=== PATIENT | female | born 1970 | race Caucasian/White ===

== ENCOUNTER 2016-09-02 14:42 | Inpatient (IN) | payer MEDICARE, OTHER ==
[2016-09-02 14:54] VITALS: BMI 33.5
--- NOTE | 2016-09-02 15:30 | PDOC ---
History of Present Illness - General Chief Complaint: Revisit, Lab Variance Stated Complaint: PCP SENT, BLOOD TRANS Time Seen by Provider: 09/02/16 15:05 History Source: Patient Exam Limitations: No Limitations - History of Present Illness Initial Comments: CHIEF COMPLAINT: 45 y/o afebrile female with PMH proctitis sent in by Dr. Shook for blood transfusion and admission. HISTORY OF PRESENT ILLNESS: The patient states she had the flu and has had bloody diarrhea for the past 11 days. Yesterday she went to see Dr. Shook, who took blood and called her today and told her to come to the ER for a blood transfusion. The patient states she feels very well and is still having episodes of bloody diarrhea. She denies f/c, n/v, CP, SOB, back pain. Vital signs on arrival are notable for pulse of 114. REVIEW OF SYSTEMS: GENERAL/CONSTITUTIONAL: No fever/chills. +weakness. No weight change. HEAD, EYES, EARS, NOSE AND THROAT: No change in vision. No ear pain or discharge. No sore throat. CARDIOVASCULAR: No chest pain or shortness of breath. RESPIRATORY: No cough, wheezing, or hemoptysis. GASTROINTESTINAL: +lower abdominal pain and bloody diarrhea. No nausea, vomiting. GENITOURINARY: No dysuria, frequency, or change in urination. MUSCULOSKELETAL: No joint or muscle swelling or pain. No neck or back pain. SKIN: No rash or easy bruising. NEUROLOGIC: No headache, vertigo, loss of consciousness, or loss of sensation. PHYSICAL EXAM: GENERAL: The patient is awake, alert, and fully oriented, in no acute distress. She appears pale. HEAD: Normal with no signs of trauma. ENT: Pupils equal, round and reactive to light, extraocular movements intact, sclera anicteric, conjunctiva pale. Neck supple. LUNGS: Clear to auscultation bilaterally. Normal excursion. No respiratory distress or use of accessory muscles. CV: RRR, S1/S2, no MRG. Cap refill < 2 sec. ABDOMEN: Soft, non-distended, non-tender even to deep palpation, no hepatomegaly or splenomegaly, no masses. RECTAL: No visible external hemorrhoids or blood. No internal hemorrhoids or blood on internal rectal exam. EXTREMITIES: Normal range of motion, no edema. NEUROLOGICAL: Normal speech, normal gait. CN II-XII grossly intact. PSYCH: Normal mood, normal affect. SKIN: Warm, dry, normal turgor, no rashes or lesions noted. Past History - Past Medical History Allergies/Adverse Reactions: Allergies Allergy/AdvReac Type Severity Reaction Status Date / Time Sulfa (Sulfonamide Allergy Mild Verified 04/17/16 18:45 Antibiotics) Penicillins Allergy Unknown Verified 04/17/16 18:45 mint Allergy Uncoded 04/17/16 18:45 Home Medications: Ambulatory Orders Acetaminophen W/ Codeine #3 [Tylenol # 3 -] 1 tab PO Q6H PRN 09/02/16 Clarithromycin [Biaxin] 500 mg PO BID 09/02/16 Naproxen [Naprosyn -] 500 mg PO BID PRN 09/02/16 GI Disorders: Yes (IBS, PROCTITIS) - Psycho/Social/Smoking Cessation Hx Suicidal Ideation: No Smoking Status: No Smoking History: Never smoked Number of Cigarettes Smoked Daily: 1 Information on smoking cessation initiated: No Hx Alcohol Use: No Drug/Substance Use Hx: No Substance Use Type: None *Physical Exam - Vital Signs Last Vital Signs Temp Pulse Resp BP Pulse Ox 98.2 F 114 H 18 140/80 97 09/02/16 14:50 09/02/16 14:50 09/02/16 14:50 09/02/16 14:50 09/02/16 14:50 Heart Score/ECG Review - ECG Intrepretation Comment:: Twelve-lead EKG was performed and reviewed by Dr. Mccormick. There is sinus tachycardia. The axis is normal. The intervals are normal. There are no ST or T wave abnormalities. Impression: Borderline twelve-lead EKG ED Treatment Course - LABORATORY CBC & Chemistry Diagram: 09/02/16 15:31 09/02/16 15:31 Medical Decision Making - Medical Decision Making A/P: 45 y/o afebrile female here for a blood transfusion. Spoke with Dr. Shook and he would like her admitted as her hemoglobin was 5.3 yesterday. Plan is as follows: 1. EKG 2. CXR 3. Labs 4. Blood transfusion 5. Stool occult Will admit to [facility] and put in consult for Dr. Pisano. Pt is aware of the plan and is amenable. H/H = 4.9/17 Platelets 831,000 Ordered PRBCs. Pt admitted to Tele. First unit of PRBCs ordered. *DC/Admit/Observation/Transfer Diagnosis at time of Disposition: Bloody diarrhea Anemia Qualifiers: Anemia type: unspecified type Qualified Code(s): D64.9 - Anemia, unspecified - Discharge Dispostion Condition at time of disposition: Fair Admit: Yes
[2016-09-02 15:36] LABS: BASOPHIL 0.8 % (0-2.0); EOSINOPHIL 5.2 % (0-4.5); MCHC 27.5 g/dl (32.0-36.0); MEAN CELL VOLUME 53.2 fl (80-96); MEAN PLT VOLUME 8.7 fl (7.5-11.1); NEUTROPHILS 66.4 % (42.8-82.8); PLATELET COUNT 831 K/MM3 (134-434); RDW 20.9 % (11.6-15.6); WHITE BLOOD COUNT 11.3 K/mm3 (4.0-10.0)
[2016-09-02 15:46] LABS: MCH 14.6 pg (25.7-33.7)
[2016-09-02 16:09] LABS: INR 1.05 (0.82-1.09); PROTHROMBIN TIME (PATIENT) 11.6 SEC (9.98-11.88)
[2016-09-02 16:11] LABS: ACTIVATED PTT 29.9 SECONDS (26.9-34.4)
[2016-09-02 16:29] LABS: ALBUMIN 2.8 g/dl (3.4-5.0); ALK PHOS 95 U/L (45-117); ANION GAP 11 (8-16); BILIRUBIN,TOTAL 0.3 mg/dL (0.2-1.0); CO2 24 mmol/L (21-32); CREATININE 0.7 mg/dL (0.55-1.02); GLUCOSE,RANDOM 92 mg/dL (74-106); SGOT/AST 11 U/L (15-37); SGPT/ALT 12 U/L (12-78); TOT PROT 6.1 g/dl (6.4-8.2)
[2016-09-02 16:42] LABS: TROPONIN I < 0.02 ng/ml (0.00-0.05)
[2016-09-02 16:42] LABS: ANISOCYTOSIS 2+; HYPOCHROMIA 3+; MICROCYTOSIS 3+; PLATELET ESTIMATE MOD INCREASED (NORMAL); POIKILOCYTOSIS 2+; POLYCHROMASIA 1+
[2016-09-02 16:43] LABS: OVALOCYTES 1+; TARGET CELLS 1+; TEAR DROP CELLS 1+
[2016-09-02] MEDS: CLARITHROMYCIN 500 MG TABLET (UD) PO SCH (22:05)
[2016-09-02] MEDS: PANTOPRAZOLE 40 MG TABLET (FP) PO SCH (22:05)
[2016-09-03 08:14] LABS: MCHC 30.4 g/dl (32.0-36.0); MEAN CELL VOLUME 61.4 fl (80-96); MEAN PLT VOLUME 8.5 fl (7.5-11.1); PLATELET COUNT 641 K/MM3 (134-434); RDW 32.2 % (11.6-15.6); WHITE BLOOD COUNT 8.3 K/mm3 (4.0-10.0)
[2016-09-03 08:24] LABS: MCH 18.7 pg (25.7-33.7)
[2016-09-03 08:38] LABS: CALCIUM 7.9 mg/dL (8.5-10.1); CREATININE 0.7 mg/dL (0.55-1.02)
[2016-09-03 08:49] LABS: THYROID STIMULATING HORMONE 2.2 uIU/ml (0.358-3.74)
[2016-09-03] MEDS: CLARITHROMYCIN 500 MG TABLET (UD) PO SCH ×2 (09:12→21:21)
[2016-09-03] MEDS: PANTOPRAZOLE 40 MG TABLET (FP) PO SCH (09:12)
--- NOTE | 2016-09-03 11:32 | EKG ---
Test Reason : Blood Pressure : / mmHG Vent. Rate : 103 BPM Atrial Rate : 103 BPM P-R Int : 116 ms QRS Dur : 080 ms QT Int : 332 ms P-R-T Axes : 023 027 023 degrees QTc Int : 434 ms SINUS TACHYCARDIA LOW VOLTAGE QRS BORDERLINE ECG NO PREVIOUS ECGS AVAILABLE Confirmed by JOAN MILLAN MD ([id number]) on 09/03/2016 11:32:32 AM Referred By: Confirmed By:JOAN MILLAN MD
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
[2016-09-03] MEDS ORDERED: DEXTROSE 5%-NORMAL SALINE 1,000 ML IV SCH (13:00)
[2016-09-03] MEDS: PANTOPRAZOLE SODIUM 100 ML IVPB SCH ×2 (13:50→21:26)
--- NOTE | 2016-09-03 13:55 | HP ---
DATE OF ADMISSION: 09/02/2016 This is a 45-year-old female known to me, came to my office on last Sunday, which is September 01, with complaints of feeling weak. A CBC done at that time showed hemoglobin 4.9. So, yesterday, she got admitted and received 2 units of blood. Her hemoglobin is 7 this morning. Patient has a history of rectal bleeding now for the last 1 month. For the last 2 weeks, she is having rectal bleeding, started with gastroenteritis. In the past, she had colonoscopy and was diagnosed that she has some colitis on her left side of the colon; etiology not clear. PHYSICAL EXAMINATION: Vital Signs: This morning, her blood pressure 120/65, pulse rate 101, temperature 98. HEENT: Unremarkable. Neck: Supple. No JVD. Lungs: Clear. Heart: S1, S2 normal. No S3, S4. Abdomen: Soft, nontender. Rectal: Fresh blood present. Legs: No edema. LABORATORY REPORTS: WBC 8, hemoglobin 7, hematocrit 23. Chemistry: Electrolytes are normal, blood sugar 89. Thyroid functions are normal. CHEST X-RAY: Normal. ELECTROCARDIOGRAM: Normal sinus rhythm. FINAL DIAGNOSIS: Anemia secondary to gastrointestinal bleeding, colitis. PLAN: Transfuse 2 more units of pack cells today and GI consult, Dr. Pisano/Dr. Hidalgo. Winifred [id number]
[2016-09-03] MEDS ORDERED: ACETAMINOPHEN 1000 MG/100 ML VIAL (NON FORMULARY) IVPB ONE (16:00)
[2016-09-03] MEDS ORDERED: MAGNESIUM CITRATE 300 ML BOTTLE PO ONE (22:30)
[2016-09-03] MEDS ORDERED: BISACODYL 5 MG TABLET.DR (FP) PO ONE (22:30)
[2016-09-03] MEDS: HYDROmorphone HCL CARPU-JECT 2 MG/1 ML DISP.SYRIN IVPB SCH (22:39)
[2016-09-04] MEDS: HYDROmorphone HCL CARPU-JECT 2 MG/1 ML DISP.SYRIN IVPB SCH (04:30)
[2016-09-04] MEDS ORDERED: ePHEDrine SULFATE 50 MG/1 ML AMPULE ONE (07:33)
--- NOTE | 2016-09-04 08:52 | PN ---
Progress Note (short form) - Note Progress Note: ADDENDUM: Patient s/p colonoscopy with finding of pancolitis with worse disease in the left colon. Stool for C diff Start Asacol Once c diff results back, can start steroids as necessary Resume diet
[2016-09-04] MEDS: PANTOPRAZOLE SODIUM 100 ML IVPB SCH ×2 (09:53→21:22)
[2016-09-04 10:12] LABS: BASOPHIL 0.7 % (0-2.0); EOSINOPHIL 5.5 % (0-4.5); MCH 21.3 pg (25.7-33.7); MCHC 32.2 g/dl (32.0-36.0); MEAN CELL VOLUME 66.4 fl (80-96); MEAN PLT VOLUME 8.3 fl (7.5-11.1); NEUTROPHILS 65.5 % (42.8-82.8); PLATELET COUNT 621 K/MM3 (134-434); RDW 33.9 % (11.6-15.6); WHITE BLOOD COUNT 10.7 K/mm3 (4.0-10.0)
[2016-09-04] MEDS: MESALAMINE 800 MG TABLET.DR PO SCH ×2 (13:43→21:24)
[2016-09-04] MEDS: metroNIDAZOLE 250 MG TABLET PO SCH ×2 (13:44→21:22)
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
[2016-09-04] MEDS ORDERED: DICYCLOMINE HCL 20 MG TABLET PO SCH (17:30)
[2016-09-04] MEDS: DICYCLOMINE HCL 10 MG CAPSULE PO SCH ×2 (18:14→22:00)
--- NOTE | 2016-09-04 18:54 | PN ---
Progress Note, Physician Chief Complaint: S/P colonoscopy ,nted colitis ,on flagyl Path report pending History of Present Illness: rectal bleeding less - Current Medication List Current Medications: Active Medications Dicyclomine HCl (Bentyl -) 20 mg PO TID [facility] Last Admin: 09/04/16 18:14 Dose: 20 mg Pantoprazole Sodium (Protonix 40mg Ivpb (Pre-Docked)) 100 mls @ 200 mls/hr IVPB BID [facility] Last Admin: 09/04/16 09:53 Dose: 200 mls/hr Mesalamine (Asacol Hd -) 800 mg PO TID [facility] Last Admin: 09/04/16 13:43 Dose: 800 mg Metronidazole (Flagyl -) 500 mg PO TID [facility] Last Admin: 09/04/16 13:44 Dose: 500 mg - Objective Vital Signs: Vital Signs Temperature 97.8 F 09/04/16 17:58 Pulse Rate 88 09/04/16 17:58 Respiratory Rate 18 09/04/16 17:58 Blood Pressure 130/74 09/04/16 17:58 O2 Sat by Pulse Oximetry (%) 79 L 09/04/16 09:03 Constitutional: Yes: Mild Distress Eyes: Yes: WNL HENT: Yes: WNL Neck: Yes: WNL Cardiovascular: Yes: WNL Respiratory: Yes: WNL Gastrointestinal: Yes: Soft ...Rectal Exam: Yes: Inflammation Breast(s): Yes: WNL Musculoskeletal: Yes: WNL Extremities: Yes: WNL Edema: No ...Motor Strength: WNL Psychiatric: Yes: Alert Labs: CBC, BMP 09/04/16 09:50 09/03/16 06:00 INR, PTT INR 1.05 (0.82-1.09) 09/02/16 15:31 Assessment/Plan Plan trasfer to regular floor
[2016-09-05] MEDS: metroNIDAZOLE 250 MG TABLET PO SCH (06:38)
[2016-09-05] MEDS: MESALAMINE 800 MG TABLET.DR PO SCH (06:39)
[2016-09-05] MEDS: DICYCLOMINE HCL 10 MG CAPSULE PO SCH (06:39)
[2016-09-05 08:23] LABS: MCH 21.2 pg (25.7-33.7); MCHC 31.7 g/dl (32.0-36.0); MEAN CELL VOLUME 66.9 fl (80-96); MEAN PLT VOLUME 8.7 fl (7.5-11.1); PLATELET COUNT 566 K/MM3 (134-434); RDW 34.9 % (11.6-15.6); WHITE BLOOD COUNT 7.5 K/mm3 (4.0-10.0)
--- NOTE | 2016-09-05 09:28 | DS ---
Physical Examination Vital Signs: Vital Signs Temperature 98.2 F 09/05/16 06:00 Pulse Rate 80 09/05/16 06:00 Respiratory Rate 20 09/05/16 06:00 Blood Pressure 110/63 09/05/16 06:00 O2 Sat by Pulse Oximetry (%) 99 09/04/16 20:55 Findings/Remarks: Colitis Constitutional: Yes: No Distress Eyes: Yes: WNL HENT: Yes: WNL Neck: Yes: WNL Cardiovascular: Yes: WNL Respiratory: Yes: WNL Gastrointestinal: Yes: Normal Bowel Sounds ...Rectal Exam: Yes: Deferred Renal/: Yes: WNL Breast(s): Yes: WNL Musculoskeletal: Yes: WNL Edema: No Neurological: Yes: Alert ...Motor Strength: WNL Psychiatric: Yes: WNL Labs: CBC, BMP 09/05/16 06:50 09/03/16 06:00 Discharge Summary Reason For Visit: ANEMIA BLOODY STOOL Current Active Problems Anemia (Acute) Bloody diarrhea (Acute) Condition: Fair - Home Medications Comprehensive Discharge Medication List: Ambulatory Orders Acetaminophen W/ Codeine #3 [Tylenol # 3 -] 1 tab PO Q6H PRN 09/02/16 Clarithromycin [Biaxin] 500 mg PO BID 09/02/16 Naproxen [Naprosyn -] 500 mg PO BID PRN 09/02/16
[2016-09-05] MEDS ORDERED: PT OWN MED DRAWER 7, Y5N ONE (10:41)
[2016-09-05 11:06] VITALS: BP 127/82; PULSE 95; TEMP 97.6
--- NOTE | 2016-09-05 12:10 | PATH ---
Surgical Pathology Report Patient Name: GEORGIA VERMA [facility]. Rec. #: [id number] /Age/Gender: 1970 (Age: 45) / F Account: [id number] Location: [address] [place] [address] Taken: 09/04/2016 Received: 09/04/2016 Reported: 09/05/2016 Physicians: Jarrett Hidalgo M.D. Specimen(s) Received A: BX ANTRUM B: BX ILEUM C: BX ASCENDING COLON D: BX PROXIMAL TRANSVERSE COLON E: BX DISTAL TRANSVERSE COLON F: BX SIGMOID G: BX RECTUM Clinical History Rectal bleeding Normal EGD, simpson-colitis with ileal sparing Final Diagnosis A. STOMACH, ANTRUM, BIOPSY: GASTRIC ANTRAL MUCOSA WITH MILD TO MODERATE CHRONIC GASTRITIS AND MILD REACTIVE GASTROPATHY. IMMUNOSTAIN FOR H. PYLORI IS NEGATIVE FOR ORGANISMS. B. ILEUM, BIOPSY: ILEAL MUCOSA WITH MILD ACTIVE INFLAMMATION. NO EVIDENCE OF SIGNIFICANT ARCHITECTURAL DISTORTION, GRANULOMATA OR DYSPLASIA. C. COLON, ASCENDING, BIOPSY: COLONIC MUCOSA WITH ACTIVE MILD CHRONIC COLITIS WITH CRYPTITIS, REACTIVE LYMPHOID AGGREGATE AND FOCAL MINIMAL CRYPT ALTERATION. NO EVIDENCE OF GRANULOMATA OR DYSPLASIA. D. COLON, PROXIMAL TRANSVERSE, BIOPSY: COLONIC MUCOSA WITH ACTIVE MILD TO MODERATE CHRONIC COLITIS WITH CRYPTITIS AND FOCAL MINIMAL CRYPT ALTERATION. NO EVIDENCE OF GRANULOMATA OR DYSPLASIA. E. COLON, DISTAL TRANSVERSE, BIOPSY: COLONIC MUCOSA WITH ACTIVE MODERATE CHRONIC COLITIS WITH CRYPTITIS, CRYPT ABSCESSES, REACTIVE LYMPHOID AGGREGATES AND FOCAL MILD CRYPT ALTERATION. NO EVIDENCE OF GRANULOMATA OR DYSPLASIA. F. COLON, SIGMOID, BIOPSY: COLONIC MUCOSA WITH ACTIVE MODERATE CHRONIC COLITIS WITH CRYPTITIS, REACTIVE LYMPHOID AGGREGATES AND MODERATE CRYPT ALTERATION. NO EVIDENCE OF GRANULOMATA OR DYSPLASIA. G. RECTUM, BIOPSY: RECTAL MUCOSA WITH ACTIVE MODERATE CHRONIC PROCTITIS WITH CRYPTITIS, REACTIVE LYMPHOID AGGREGATES AND MODERATE CRYPT ALTERATION. NO EVIDENCE OF GRANULOMATA OR DYSPLASIA. 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 Clinical, endoscopic and serological correlations are suggested. Electronically Signed Jai Wade M.D. Gross Description A. Received in formalin, labeled "biopsy antrum" are 2 sherwood, irregular portions of soft tissue measuring 0.2 and 0.3 cm in greatest dimension. The specimens are submitted in toto in one cassette. B. Received in formalin, labeled "biopsy ileum" is a sherwood, irregular portion of soft tissue measuring 0.3 cm in greatest dimension. The specimen is submitted in toto in one cassette. C. Received in formalin, labeled "biopsy ascending colon" are 2 sherwood, irregular portions of soft tissue averaging 0.1 cm in greatest dimension. The specimens are submitted in toto in one cassette. D. Received in formalin, labeled "biopsy transverse colon" are 2 sherwood, irregular portions of soft tissue measuring 0.1 and 0.2 cm in greatest dimension. The specimens are submitted in toto in one cassette. E. Received in formalin, labeled "biopsy distal transverse colon" is a sherwood, irregular portion of soft tissue measuring 0.3 cm in greatest dimension. The specimen is submitted in toto in one cassette. F. Received in formalin, labeled "biopsy sigmoid" is a sherwood, irregular portion of soft tissue measuring 0.4 cm in greatest dimension. The specimen is submitted in toto in one cassette. G. Received in formalin, labeled "biopsy rectum" are 6 sherwood, irregular portions of soft tissue ranging from 0.2-0.4 cm in greatest dimension. The specimens are submitted in toto in one cassette. 09/04/2016 [facility]09/04/2016
== END 2016-09-05 11:19 | disposition home or self-care (01) | DRG 245 ==
LOC: JER 14:42 → JERBED 15:41 → J4W 17:45 → J6S 09-04 20:49
PROVIDERS: ADMIT Internal Medicine; ATTEND Internal Medicine
PROC: 30233N1 Transfusion of Nonautologous Red Blood Cells into Peripheral Vein, Percutaneous Approach (ICD-10-PCS; 2016-09-02)
PROC: 0DBG8ZX Excision of Left Large Intestine, Via Natural or Artificial Opening Endoscopic, Diagnostic (ICD-10-PCS; principal; 2016-09-04 07:30)
DX: K51.00 Ulcerative (chronic) pancolitis without complications (principal); D64.9 Anemia, unspecified
CPT/HCPCS: 36415; 36430; 71010-TC; 80048; 80053; 82272; 82550; 82607; 83540; 84443; 84484; 84703; 85025; 85027; 85610; 85730; 86850; 86900; 86901; 86922; 87324; 87449; 88305-TC; 93005; 93010; 93306-TC; 99285-25; P9038; P9058